=== PATIENT | male | born 1970 | race Caucasian/White ===

== ENCOUNTER 2016-11-27 21:49 | Emergency (ER) | payer OTHER ==
[~2016-11-27 21:49] MED LIST: AUGMENTIN 875875 MG PO; KEFLEX500 MG PO; NEXIUM 40MG40 MG PO; SIMVASTATIN40 MG PO
[2016-11-27 22:56] LABS: ABSOLUTE BASOPHIL COUNT 0 /CUMM (0.0-0.2); ABSOLUTE EOSINOPHIL COUNT 0.3 /CUMM (0.0-0.7); ABSOLUTE GRANULOCYTE CT 7.8 /CUMM (1.4-6.5); ABSOLUTE LYMPH COUNT 2.6 /CUMM (1.2-3.4); ABSOLUTE MONOCYTE COUNT 0.9 /CUMM (0.10-0.60); BASOPHIL % 0.3 % (0.0-2.0); EOSINOPHIL % 2.2 % (0-5); GRANULOCYTE % 67.8 % (42.2-75.2); HEMATOCRIT 41.9 % (42-52); MEAN CORPUSCULAR HGB 30.1 PG (27.0-31.0); MEAN CORPUSCULAR HGB CONC 34.5 G/DL (33.0-37.0); MEAN CORPUSCULAR VOLUME 87.3 FL (80.0-94.0); MEAN PLATELET VOLUME 7.9 FL (7.4-10.4); PLATELET COUNT 213 /CUMM (130-400); RBC DISTRIBUTION WIDTH 13.2 % (11.5-14.5); WHITE BLOOD CELL COUNT 11.5 /CUMM (4.8-10.8)
[2016-11-27] MEDS ORDERED: AUGMENTIN 875-1 EACH PO (23:48)
--- NOTE | 2016-11-27 23:49 | ED GENERAL ADULT ---
History of Present Illness General Chief Complaint: General Adult Stated Complaint: ?CELLULITIS Source: patient Exam Limitations: no limitations Vital Signs & Intake/Output Vital Signs & Intake/Output Vital Signs Date Time Temp Pulse Resp B/P Pulse O2 O2 Flow FiO2 Ox Delivery Rate 11/28 0005 96.8 90 18 142/90 98 Room Air 11/27 2348 Room Air 11/27 2155 96.6 91 16 159/92 97 Room Air Allergies Coded Allergies: NO KNOWN ALLERGIES (11/23/14) Reconcile Medications Amoxicillin/Potassium Clav (Augmentin 875-125 Tablet) 875 MG-125 MG TABLET 1 TAB PO BID cellulitis Simvastatin 40 MG TABLET 1 TAB PO DAILY CHOLESTEROL (Reported) Triage Note: TRIAGE; PT TO ED WITH ?CELLULITIS. STATES HAS A HX OF THE SAME AND FEELS LIKE HE IS STARTING TO GET IT. REPORTS FEELING SORE TO RT GROIN LYMPH NODE, SAME SPOT LAST TIME HE HAD IT. ALSO REPORTS HAVING REDDNESS TO HIS RT CALF. Triage Nurses Notes Reviewed? yes Onset: Gradual Duration: day(s): (1) Timing: recent history Injury Environment: home Severity: moderate Severity Numbers: 6 No Modifying Factors: none HPI: Patient is a 46-year-old male presenting to the emergency department with chief complaint of redness, increasing pain of the right lower extremity the exam for the past one day. History of similar symptoms that began with cellulitis. He reports that if he lets it go away will get worse and he'll need to be admitted. Denies any fevers yet. No nausea or vomiting. Denies taking anything at home to help with symptoms. Denies any trauma to the right lower extremity. No abdominal pain. (NILTON MCFARLAND) Past History Travel History Traveled to [place] past 21 day No Medical History Any Pertinent Medical History? 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 No (NILTON MCFARLAND) Review of Systems Review of Systems Constitutional: Reports: no symptoms. Comments Review of systems: See HPI, All other systems negative. Constitutional, no chills fever or weight loss HEENT: No visual changes no sore throat no congestion Cardiovascular: No chest pain ,palpitation Skin, no jaundice Respiratory: No dyspnea cough sputum or hemoptysis GI: No nausea no vomiting : No dysuria No hematuria Muscle skeletal: no back pain, no neck pain, Neurologic: No numbness no confusion Psych: No stress anxiety Immunology: No splenectomy or history of AIDS (NILTON MCFARLAND) Physical Exam Physical Exam General Appearance: well developed/nourished, no apparent distress, alert, awake , comfortable Comments: Well-developed well-nourished person in no acute distress HEENT:Pupils equally round and reactive to light and accommodation. Nose is atraumatic. Neck: Normal inspection Back: Nontender Cardiovascular: Regular rate and rhythms no murmurs rubs or gallops, normal JVP Respiratory: . No respiratory distress.breath sounds clear to auscultation bilaterally Extremity: No edema, no calf tenderness to palpation, normal and equal pulses. No palpable inguinal lymphadenopathy on the right. Neuro: Alert oriented x3, motor sensory normal, cranial nerves II through XII grossly intact. Skin: Mild erythema appreciated on the medial aspect of the right calf. Mildly warm to palpation. Blanchable. Psych: Mood and affect is normal, memory and judgment is normal. Core Measures ACS in differential dx? No CVA/TIA Diagnosis: No Severe Sepsis Present: No Septic Shock Present: No (NILTON MCFARLAND) Progress Differential Diagnoses I considered the following diagnoses in my evaluation of the patient: Cellulitis, abrasion, contusion, nonspecific rash, contact dermatitis Plan of Care: Orders Procedure Date/time Status COMPREHENSIVE METABOLIC PANEL 11/27 2155 Complete CBC WITHOUT DIFFERENTIAL 11/27 2155 Complete Laboratory Tests 11/27/162246: Anion Gap 8, Estimated GFR > 60, BUN/Creatinine Ratio 16.4, Glucose 188 H, Calcium 9.0, Total Bilirubin 0.4, AST 20, ALT 35, Alkaline Phosphatase 72, Total Protein 6.9, Albumin 3.9, Globulin 3.0, Albumin/Globulin Ratio 1.3, CBC w Diff NO MAN DIFF REQ, RBC 4.80, MCV 87.3, MCH 30.1, RDW 13.2, MPV 7.9, Gran % 67.8, Lymphocytes % 22.3, Monocytes % 7.4, Eosinophils % 2.2, Basophils % 0.3, Absolute Granulocytes 7.8 H, Absolute Lymphocytes 2.6, Absolute Monocytes 0.9 H, Absolute Eosinophils 0.3, Absolute Basophils 0, PUBS MCHC 34.5 Initial ED EKG: none Comments: Slight bump in white blood cell count. H&H afebrile. Patient will be treated with by mouth antibiotics. He'll follow-up with his primary care physician. Patient nontoxic. (NILTON MCFARLAND) Departure Departure Time of Disposition: 2346 Disposition: HOME OR SELF CARE Condition: Stable Clinical Impression Primary Impression: Cellulitis Qualifiers: Site of cellulitis: extremity Site of cellulitis of extremity: lower extremity Laterality: right Qualified Code: L03.115 - Cellulitis of right lower limb Referrals: CHANDNI GARCIA MD (PCP/Family) Additional Instructions: Follow-up with your primary care physician call to make an appointment. Rest and elevate her leg as much as possible. Take Augmentin as prescribed. Return for worsening symptoms or concerns. Departure Forms: Customer Survey General Discharge Information Prescriptions: Current Visit Scripts Amoxicillin/Potassium Clav (Augmentin 875-125 Tablet) 1 TAB PO BID #20 TAB (NILTON MCFARLAND) PA/ANTENNA RIGGER Co-Sign Statement Statement: ED Attending supervision documentation- [] I saw and evaluated the patient. I have also reviewed all the pertinent lab results and diagnostic results. I agree with the findings and the plan of care as documented in the PA's/ANTENNA RIGGER's documentation. x I have reviewed the ED Record and agree with the PA's/ANTENNA RIGGER's documentation. [] Additions or exceptions (if any) to the PAs/ANTENNA RIGGER's note and plan are summarized below: [] (BENNETT LAZO,BENJAMIN) Critical Care Note Critical Care Note Critical Care Time: non-applicable (NILTON MCFARLAND)
[2016-11-28 00:05] VITALS: BP 142/90
== END 2016-11-28 00:05 ==
LOC: ERH 21:49
PROVIDERS: Emergency Medicine
DX: L03.116 Cellulitis of left lower limb (principal)